=== PATIENT | female | born 1955 | race Caucasian/White ===

== ENCOUNTER → 2017-10-12 | Outpatient (CLI) | payer BC | END | disposition home or self-care (01) | LOC: CVU 13:09 | PROVIDERS: ATTEND Internal Medicine Cardiovascular Disease | DX: I08.1 Rheumatic disorders of both mitral and tricuspid valves (principal); I10 Essential (primary) hypertension; Z87.891 Personal history of nicotine dependence | CPT/HCPCS: 0399T; 93306 ==

== ENCOUNTER → 2017-12-28 | Outpatient (CLI) | payer BC ==
[~2017-12-28] MED LIST: REGADENOSON 0.4 MG/5 ML SYRINGE ONE
== END | disposition home or self-care (01) ==
LOC: CFH 08:20
PROVIDERS: ATTEND Internal Medicine Cardiovascular Disease
DX: R07.89 Other chest pain (principal); F17.200 Nicotine dependence, unspecified, uncomplicated
CPT/HCPCS: 78452; 93017; A9502; J2785